=== PATIENT | male | born 1955 | race Caucasian/White ===

== ENCOUNTER → 2021-01-04 | Outpatient (CLI) | payer OTHER | END | disposition home or self-care (01) | LOC: LAB 14:37 → LAB SHORT 14:37 | DX: D22.4 Melanocytic nevi of scalp and neck (principal) | CPT/HCPCS: 88305 ==

== ENCOUNTER 2022-01-18 06:01 | Day surgery (SDC) | payer OTHER ==
[2022-01-17 16:12] LABS: U Amphetamine Screen Not Detected; U Barbituate Screen Not Detected; U Benzodiazapine Screen Not Detected; U Buprenorphine Screen Not Detected; U Cannabinoids Screen Not Detected; U Cocaine Screen Not Detected; U Methadone Screen Not Detected; U Methamphetamine Screen Not Detected; U Opiates Screen Not Detected; U Oxycodone Screen Not Detected; U Phencyclidine Screen Not Detected; U Propoxyphene Screen Not Detected
[~2022-01-18] VITALS: Ht 177.8 cm; Wt 118.0 kg
[~2022-01-18 06:01] MED LIST: SERT100 PO
--- NOTE | 2022-01-18 07:10 | NUR ---
History, Chart, Medications and Allergies reviewed before start of procedure. Patient confirms NPO status and agrees with scheduled surgery. Patient took his glasses and glasses off and gave to his for safe keeping.
--- NOTE | 2022-01-18 07:34 | NUR ---
KNEE HIGH LEANNA HOSE AND CALF PAS APPLIED TO RLE.
--- NOTE | 2022-01-18 11:29 | NUR ---
PT OUT TO THE FLOOR AT AROUND 1055. PT'S BED WET DUE TO LEAKING POLAR PACK MACHINE. NEW POLAR PACK OBTAINED FROM PACU. PT IN PAIN AND TREATED PER EMR. PT REQUESTS TO USE NO OPIOID PAIN MEDICATION.
--- NOTE | 2022-01-18 19:15 | NUR ---
SHIFT SUMMARY PT POD#0 FOR L TOTAL KNEE. PT WORKED WITH PHYSICAL THERAPY, IS TOLERATING PO INTAKE, AND HAS VOIDED. JOSE C WRAP AND AQUACEL DRESSING IN PLACE AND CDI. PT REQUESTS NON-OPIOID MEDICATIONS FOR PAIN AND IS DOING WELL ON THAT REGIMEN. VSS. WILL POSSIBLY DC HOME TOMORROW.
--- NOTE | 2022-01-19 04:02 | NUR ---
SHIFT SUMMARY A/O X4- VITAL SIGNS STABLE. NO ACUTE CHANGES. POD1 L TKA- AQUACEL AND JOSE C WRAP IN PLACE, C/D/I. PAIN MANAGED W/ TYLENOL AND TORADOL PER EMAR. PT AMBULATING WELL W/ FWW, GB, AND SBA. VOIDING AND TOLERATING PO INTAKE. WILL CONTINUE TO MONITOR AND REPORT TO ONCOMING RN.
[2022-01-19 05:39] LABS: BASOPHILS ABSOLUTE AUTO 0.01 K/mm3 (0.00-0.23); BASOPHILS PERCENT AUTO 0 % (0-2); EOSINOPHILS ABSOLUTE AUTO 0.01 K/mm3 (0.00-0.68); EOSINOPHILS PERCENT AUTO 0 % (0-6); Hematocrit 39.1 % (37.0-53.0); Hemoglobin 13.2 g/dL (13.5-17.5); IMMATURE GRAN ABSOLUTE AUTO 0.05 K/mm3 (0.00-0.10); IMMATURE GRAN PERCENT AUTO 0 % (0-1); LYMPHOCYTES ABSOLUTE AUTO 0.99 K/mm3 (0.84-5.20); LYMPHOCYTES PERCENT AUTO 8 % (21-46); MONOCYTES ABSOLUTE AUTO 0.79 K/mm3 (0.16-1.47); MONOCYTES PERCENT AUTO 6 % (4-13); Mean Corpuscular HGB 29.9 pg (26.0-34.0); Mean Corpuscular HGB Conc 33.8 g/dL (31.5-36.5); Mean Corpuscular Volume 89 fL (80-100); Mean Platelet Volume 10.8 fL (9.1-12.4); NEUTROPHILS ABSOLUTE AUTO 10.64 K/mm3 (1.96-9.15); NEUTROPHILS PERCENT AUTO 85 % (41-73); Platelet Count 222 K/mm3 (150-400); RDW Coefficient Variation 12.9 % (11.7-14.2); RDW Standard Deviation 42.3 fL (35.1-46.3); Red Blood Cell Count 4.42 M/mm3 (4.30-5.90); White Blood Cell Count 12.49 K/mm3 (4.00-11.30)
[2022-01-19 06:00] LABS: Bun/Creatinine Ratio 21.4 (12.0-20.0); Calcium, Blood 9.6 mg/dL (8.5-10.1); Creatinine, Blood 0.89 mg/dL (0.60-1.20); Potassium, Blood 4.1 mmol/L (3.5-5.5)
[2022-01-19] MEDS ORDERED: TRAM50 PO (10:14)
[2022-01-19] MEDS ORDERED: Aspir 8181 MG PO (10:14)
--- NOTE | 2022-01-19 12:23 | NUR ---
DISCHARGE SUMMARY PATIENT ALERT AND ORIENTED THROUGHOUT SHIFT. TOLERATING REGULAR DIET AND LIQUIDS. VOIDING WELL. AMBULATING IN HALLS WITH FWW AND GAIT BELT. PAIN CONTROLLED WITH PO PAIN MEDS. CLEARED BY PT. DISCHARGE ORDER IN CHART. DISCHARGE EDUCATION GIVEN ON NEW RXS, WOUND CARE, ACTIVITY, AND FOLLOW UP APPTS. IV DC'D WNL. PT TOLERATED WELL. PATIENT LEFT UNIT AT 1030 VIA WHEELCHAIR FOR HOME WITH SPOUSE.
== END 2022-01-19 11:15 | disposition home or self-care (01) ==
LOC: ORSCMMR 06:01 → ORD 07:30 → SURS 10:40 → ORSCMMR 01-19 11:15
PROVIDERS: Orthopaedic Surgery
PROC: 0SRD0JA Replacement of Left Knee Joint with Synthetic Substitute, Uncemented, Open Approach (ICD-10-PCS; principal; 2022-01-18 07:30)
PROC: 8E0Y0CZ Robotic Assisted Procedure of Lower Extremity, Open Approach (ICD-10-PCS; principal; 2022-01-18 07:30)
DX: M17.12 Unilateral primary osteoarthritis, left knee (principal); E66.9 Obesity, unspecified; Z68.37 Body mass index [BMI] 37.0-37.9, adult; Z79.899 Other long term (current) drug therapy
CPT/HCPCS: 27447; S2900; 36415; 73560-LT; 80048; 85025; 97110; 97116; 97161; 97530; A9270; C1776; J0171; J0690; J0735; J1100; J1885; J2250; J2370; J2405; J2704; J2795; J3010; J7120

== ENCOUNTER → 2024-02-27 | Outpatient (CLI) | payer OTHER ==
[~2024-02-27] MED LIST changes: +Aspir 8181 MG PO; +TRAM50 PO
[2024-02-27 19:26] LABS: BASOPHILS ABSOLUTE AUTO 0.08 K/mm3 (0.00-0.23); BASOPHILS PERCENT AUTO 1 % (0-2); EOSINOPHILS ABSOLUTE AUTO 0.21 K/mm3 (0.00-0.68); EOSINOPHILS PERCENT AUTO 4 % (0-6); Hematocrit 46.1 % (37.0-53.0); Hemoglobin 15.6 g/dL (13.5-17.5); IMMATURE GRAN ABSOLUTE AUTO 0.01 K/mm3 (0.00-0.10); IMMATURE GRAN PERCENT AUTO 0 % (0-1); LYMPHOCYTES PERCENT AUTO 26 % (21-46); MONOCYTES ABSOLUTE AUTO 0.37 K/mm3 (0.16-1.47); MONOCYTES PERCENT AUTO 6 % (4-13); Mean Corpuscular HGB 29.4 pg (26.0-34.0); Mean Corpuscular HGB Conc 33.8 g/dL (31.5-36.5); Mean Corpuscular Volume 87 fL (80-100); Mean Platelet Volume 11.2 fL (9.1-12.4); NEUTROPHILS ABSOLUTE AUTO 3.67 K/mm3 (1.96-9.15); NEUTROPHILS PERCENT AUTO 63 % (41-73); Platelet Count 216 K/mm3 (150-400); RDW Coefficient Variation 12.8 % (11.7-14.2); RDW Standard Deviation 40.7 fL (35.1-46.3); White Blood Cell Count 5.84 K/mm3 (4.00-11.30)
[2024-02-27 19:58] LABS: Alanine Aminotransfer (ALT/SGP 30 U/L (12-78); Albumin/Globulin Ratio 1.2 (0.8-1.8); Alk Phos 79 U/L (50-136); Anion Gap 9 mmol/L (3-11); Aspartate Aminotrans (AST/SGOT 19 U/L (12-37); Blood Urea Nitrogen 11 mg/dL (8-24); Bun/Creatinine Ratio 13.3 (12.0-20.0); CHOL/HDL RATIO 3.5; CO2, Blood 25 mmol/L (21-32); Calcium, Blood 9.2 mg/dL (8.5-10.1); Chloride, Blood 110 mmol/L (98-108); Cholesterol 173 mg/dL (50-200); Creatinine, Blood 0.83 mg/dL (0.60-1.20); Globulin, Blood 3.2 g/dL (2.2-4.0); Glomerular Filtration Rate 94 (60-); Glucose, Blood 100 mg/dL (70-99); HDL Cholesterol 50 mg/dL (>39); LDL/HDL RATIO 1.8; Low Density Lipoprotein Chol 92 mg/dL (0-110); Sodium, Blood 140 mmol/L (136-145); Total Protein, Blood 7.2 g/dL (6.4-8.2); Triglycerides 157 mg/dL (30-160); Very Low Density Lipoprot Chol 31 mg/dL (6-32)
== END | disposition home or self-care (01) ==
LOC: LAB SHORT 18:43
PROVIDERS: Student in an Organized Health Care Education/Training Program
DX: Z12.5 Encounter for screening for malignant neoplasm of prostate (principal); E78.2 Mixed hyperlipidemia; F33.41 Major depressive disorder, recurrent, in partial remission
CPT/HCPCS: 80053; 80061; 85025; G0103

== ENCOUNTER 2024-07-03 16:39 | Observation (INO) | payer OTHER ==
[~2024-07-03] VITALS: Ht 177.8 cm; Wt 118.8 kg
[2024-07-03] MEDS ORDERED: Ketorolac Tromethamine 15mg Vial IM ONE (16:50)
[2024-07-03] MEDS ORDERED: Lidocaine 4% 1 Patch TOP ONE (18:30)
[2024-07-03] MEDS ORDERED: TraMADol HCl 50 MG Tab PO ONE (18:30)
[2024-07-03 19:24] LABS: BASOPHILS ABSOLUTE AUTO 0.06 K/mm3 (0.00-0.23); BASOPHILS PERCENT AUTO 1 % (0-2); EOSINOPHILS ABSOLUTE AUTO 0.05 K/mm3 (0.00-0.68); EOSINOPHILS PERCENT AUTO 0 % (0-6); Hematocrit 47.8 % (37.0-53.0); Hemoglobin 16.6 g/dL (13.5-17.5); IMMATURE GRAN ABSOLUTE AUTO 0.07 K/mm3 (0.00-0.10); IMMATURE GRAN PERCENT AUTO 1 % (0-1); LYMPHOCYTES ABSOLUTE AUTO 1.15 K/mm3 (0.84-5.20); LYMPHOCYTES PERCENT AUTO 9 % (21-46); MONOCYTES ABSOLUTE AUTO 0.85 K/mm3 (0.16-1.47); MONOCYTES PERCENT AUTO 7 % (4-13); Mean Corpuscular HGB 30.4 pg (26.0-34.0); Mean Corpuscular HGB Conc 34.7 g/dL (31.5-36.5); Mean Corpuscular Volume 88 fL (80-100); Mean Platelet Volume 10.8 fL (9.1-12.4); NEUTROPHILS ABSOLUTE AUTO 10.71 K/mm3 (1.96-9.15); NEUTROPHILS PERCENT AUTO 83 % (41-73); Platelet Count 260 K/mm3 (150-400); RDW Coefficient Variation 13.2 % (11.7-14.2); RDW Standard Deviation 42.1 fL (35.1-46.3); Red Blood Cell Count 5.46 M/mm3 (4.30-5.90); White Blood Cell Count 12.89 K/mm3 (4.00-11.30)
[2024-07-03 19:39] LABS: Bun/Creatinine Ratio 18.4 (12.0-20.0); Calcium, Blood 9.8 mg/dL (8.5-10.1); Creatinine, Blood 0.92 mg/dL (0.60-1.20); Potassium, Blood 4.1 mmol/L (3.5-5.5)
[2024-07-03] MEDS ORDERED: Acetaminophen 500 MG Tab PO ONE (19:55)
[2024-07-03] MEDS ORDERED: Ketorolac Tromethamine 15mg Vial IV ONE (19:55)
[2024-07-03] MEDS ORDERED: Acetaminophen 500 MG Tab PO PRN (21:15)
[2024-07-03] MEDS ORDERED: Ondansetron HCl 2 MG / ML 2ML Vial IV PRN (21:15)
[2024-07-03] MEDS ORDERED: Ketorolac Tromethamine 15mg Vial IV PRN (21:25)
[2024-07-03] MEDS ORDERED: Sertraline HCl 100 MG Tab PO SCH (22:00)
[2024-07-04 01:42] VITALS: BP 126/87
[2024-07-04 05:25] VITALS: BP 117/76
--- NOTE | 2024-07-04 06:40 | NUR ---
SHIFT SUMMARY PT A&O X4, [place]. BASELINE NEUROPATHY TO BLE'S. DRESSING INTACT TO LEFT HIP. MEDICATED X1 FOR PAIN- SEE EMAR. TELEMETRY WITH AFIB/FLUTTER- RATE DOWN TO THE HIGH 30'S FOR A COUPLE OF BEATS X2- PT ASYMPTOMATIC. PT SLEPT OFF/ON THROUGH THE NIGHT. BED IN LOWEST POSITION, SIDE RAILS UP X2, CALL LIGHT WITHIN REACH.
--- NOTE | 2024-07-04 06:48 | NUR ---
SHIFT SUMMARY PT ADMITTED TO UNIT AT 0140 FROM ED AFTER FALLING OFF OF A LADDER AND SUSTAINING LEFT RIB FRACTURES. LIDOCAINE PATCH INTACT TO LEFT FLANK/BACK AREA. PT MEDICATED WITH TYLENOL/TORADOL- SEE EMAR. PT EXPERIENCING MUCH PAIN WHEN MOVING- STAYED IN BED THROUGH THE NIGHT, ASSISTED WITH POSITION CHANGES. SIDE RAILS UP X2, CALL LIGHT WITHIN REACH, BED IN LOWEST POSITION.
[2024-07-04 07:35] VITALS: BP 126/68
[2024-07-04] MEDS ORDERED: Lidocaine 4% 1 Patch TOP SCH (09:00)
[2024-07-04] MEDS ORDERED: TraMADol HCl 50 MG Tab PO STA (10:41)
[2024-07-04] MEDS ORDERED: TraMADol HCl 50 MG Tab PO PRN (11:00)
[2024-07-04 15:47] VITALS: BP 136/84
--- NOTE | 2024-07-04 18:10 | NUR ---
SHIFT SUMMARY PT A&OX4, VSS, DID NOT GET OUT OF BED THIS SHIFT, IS TOLERATING PO, VOIDING, AND PAIN MANAGED PER EMAR. PT EDUCATED ON INCENTIVE SPIROMETER AND DEMONSTRATED USE. SURGEON ROUNDED ON PT. NO ACUTE CHANGES. CALL LIGHT WITHIN REACH AND PT ABLE TO MAKE NEEDS KNOWN.
[2024-07-04 20:25] VITALS: BP 130/73
[2024-07-05 02:25] VITALS: BP 116/73
--- NOTE | 2024-07-05 06:29 | NUR ---
SHIFT SUMMARY PT WITH DIFFICULTY MOVING SECONDARY TO POSTERIOR RIB PAIN- MEDICATED PER EMAR. THIS AM, PT STATES HE FEELS HIS RIBS "POP" AND COMPLAINING OF SOME SPASMS. HEATING PAD TO LEFT BACK INTERMITTENT 20 MIN ON/ 20 MIN OFF. PT USING INCENTIVE SPIROMETER WELL, ABLE TO GET TO 2500- ENCOURAGED PT TO TRY TO TAKE SLOWER BREATHS. PT SLEPT SHORT INTERVALS THROUGH THE NIGHT. BED IN LOWEST POSTION, CALL LIGHT WITHIN REACH, SIDE RAILS UP X2.
[2024-07-05 07:25] VITALS: BP 139/81
[2024-07-05] MEDS ORDERED: ACETAMINOPHEN500 M2 PO (12:41)
[2024-07-05] MEDS ORDERED: Cyclobenzaprine5 MG PO (12:41)
[2024-07-05] MEDS ORDERED: GABA100 PO (12:42)
[2024-07-05] MEDS ORDERED: IBUP400 PO (12:43)
[2024-07-05] MEDS ORDERED: LIDO700A20 TOP (12:44)
--- NOTE | 2024-07-05 15:10 | NUR ---
PATIENT DISCHARGED HOME, ACCOMPANYING, BOTH STATED UNDERSTANDING OF DISCAHRGE NEEDS, BOTH DENIED FURTHER QUESTIONS
== END 2024-07-05 15:36 | disposition home health service (06) ==
LOC: ER 16:39 → MEDS 16:40 → ENPENDDIS 07-05 12:19 → MEDS 07-05 15:36
PROVIDERS: Emergency Medicine; ADMIT Surgery
DX: S22.42XA Multiple fractures of ribs, left side, initial encounter for closed fracture (principal); W11.XXXA Fall on and from ladder, initial encounter; M47.817 Spondylosis without myelopathy or radiculopathy, lumbosacral region; F32.A Depression, unspecified; E66.9 Obesity, unspecified; Z68.35 Body mass index [BMI] 35.0-35.9, adult; Z79.82 Long term (current) use of aspirin; Z79.899 Other long term (current) drug therapy; Z91.018 Allergy to other foods
CPT/HCPCS: 70450; 71046; 71260; 72100; 72125; 73522; 74177; 80048; 85025; 96374-59; 96376; 97110; 97162; 97530; 99285-25; A9270; G0378; J1885; Q9967